=== PATIENT | male | born 1955 | race Caucasian/White ===

== ENCOUNTER 2024-01-21 12:27 | Outpatient (CLI) | payer MEDICARE | END 2024-01-21 12:28 | disposition home or self-care (01) | LOC: CSHMRI 12:27 | PROVIDERS: ATTEND Neurological Surgery | DX: Q28.2 Arteriovenous malformation of cerebral vessels (principal); Z98.890 Other specified postprocedural states | CPT/HCPCS: 36415; 70553; 76376; 82565 ==